=== PATIENT | female | born 1990 | race Caucasian/White ===

== ENCOUNTER 2016-12-08 16:18 | Emergency (ER) | payer MEDICAID ==
[~2016-12-08] VITALS: Ht 160 cm; Wt 50.0 kg
[2016-12-08 16:22] VITALS: BP 129/77; PULSE 86; TEMP 98.5; O2SAT 99
[2016-12-08] MEDS ORDERED: AUGM875T3 PO (16:50)
--- NOTE | 2016-12-08 16:51 | PD ---
HPI Chief Complaint: ENT Complaint Time Seen by Provider: 16:45 Travel History International Travel<30 days: No Contact w/Intl Traveler<30days: No Traveled to known affect area: No History of Present Illness HPI 26-year-old female here with complaint of right sided ear pain. States that she has had [place] one day of pain in the right ear, throbbing. No drainage, headache, fevers, chills. She denies any instrumentation to the right ear. PFSH Past Medical History Medical History: Denies Significant Hx ?: Not Past Surgical History Appendectomy: Yes Social History Tobacco Use: No (former) Allergies-Medications (Allergen,Severity, Reaction): Coded Allergies: No Known Allergies (Unverified , 12/08/16) Reported Meds & Prescriptions Reported Meds & Active Scripts Active Augmentin (Amoxicillin-Clavulanate) 875-125 Mg Tab 1 Tab PO BID Review of Systems Except as stated in HPI: all other systems reviewed are Neg Physical Exam Narrative GENERAL: Well-appearing female in no acute distress SKIN: Focused skin assessment warm/dry. HEAD: Normocephalic. EYES: No scleral icterus. No injection or drainage. ENT: Right TM is erythematous, opaque and slightly bulging. Minimal erythema of the very distal external auditory canal. No drainage CARDIOVASCULAR: Regular rate and rhythm. RESPIRATORY: No accessory muscle use. MUSCULOSKELETAL: Normal gait NEUROLOGICAL: Awake and alert. No obvious cranial nerve deficits. Motor grossly within normal limits. Normal speech. PSYCHIATRIC: Appropriate mood and affect; insight and judgment normal. Data Data Last Documented VS Vital Signs Date Time Temp Pulse Resp B/P Pulse Ox O2 Delivery O2 Flow Rate FiO2 12/08/16 16:37 16 12/08/16 16:22 98.5 86 129/77 99 [facility] Medical Decision Making Medical Screen Exam Complete: Yes Emergency Medical Condition: Yes Medical Record Reviewed: Yes Differential Diagnosis 26-year-old female here with complaint of right ear pain. Exam is consistent with otitis media. No evidence of otitis externa, mastoiditis Narrative Course Antibiotics for home Diagnosis Primary Impression: Otitis media Referrals: [facility] as needed Additional Instructions: Antibiotics as prescribed. Tylenol, ibuprofen, Aleve as needed for pain Med/Other Pt SpecificInfo: Prescription(s) given Scripts Amoxicillin-Clavulanate (Augmentin)875-125 Mg Tab1 Tab PO BID #10 TAB Ref 0 Prov:Ingrid Frye MD 12/08/16 Disposition: 01 DISCHARGE HOME Condition: Stable Ingrid Frye MD Dec 08, 2016 16:50
== END 2016-12-08 17:15 | disposition home or self-care (01) ==
LOC: NEPD 16:18
DX: H66.91 Otitis media, unspecified, right ear (principal); Z87.891 Personal history of nicotine dependence
CPT/HCPCS: 99283